=== PATIENT | female | born 1945 | race Caucasian/White ===

== ENCOUNTER 2017-06-01 08:23 | Inpatient (IN) ==
[2017-06-01] MEDS ORDERED: Ondansetron 4 MG/2 ML VIAL IVP ONE ×2 (08:30→14:12)
[2017-06-01] MEDS ORDERED: 0.9 % Sodium Chloride 1,000 ML IVC ONE ×2 (08:30→09:16)
[2017-06-01] MEDS ORDERED: *HR* Morphine 2 MG/ML SYRINGE IVP ONE (08:30)
--- NOTE | 2017-06-01 09:02 | Emergency Department Note ---
Disposition Clinical Impression: Rhabdomyolysis Qualifiers: Rhabdomyolysis type: non-traumatic Qualified Code(s): M62.82 - Rhabdomyolysis UTI (urinary tract infection) Qualifiers: Urinary tract infection type: site unspecified Hematuria presence: without hematuria Qualified Code(s): N39.0 - Urinary tract infection, site not specified Open trimalleolar fracture of left ankle Qualifiers: Encounter type: initial encounter Open fracture type: open type I or II Qualified Code(s): S82.852B - Displaced trimalleolar fracture of left lower leg , initial encounter for open fracture type I or II Disposition: Admitted As Inpatient Condition: Undetermined Forms: ED Satisfaction Letter Fall HPI - General Chief Complaint: ED Extremity Problem,Nontraumatic Stated Complaint: L ankle pain Time Seen by Provider: 06/01/17 08:25 Source: patient Mode of arrival: private vehicle Limitations: no limitations Nursing Notes Reviewed: Yes Vital Signs Reviewed: Yes - History of Present Illness Pt Subjective Complaint: fall Onset (ago): day(s) (Tuesday, 05/30) Fall From: standing Fall Witnessed: no Place Fall Occurred: home Loss of Consciousness: none Prolonged Down Time?: yes, day(s) Symptoms Prior to Fall: none Context: tripped/slipped Location of injury - extremities: Left: ankle Severity: mild Severity scale (1-10): 2 Quality: dull Associated symptoms (after fall): Reports: unable to walk - Related Data Home Medications Medication Instructions Recorded Confirmed Amlodipine Besylate 10 mg PO DAILY 06/01/17 06/01/17 Calcium Carbonate [Calcium] 600 mg PO DAILY 06/01/17 06/01/17 Cholecalciferol (D-3) [Vitamin D] 2,000 unit PO DAILY 06/01/17 06/01/17 Hydrochlorothiazide [Microzide] 12.5 mg PO DAILY 06/01/17 06/01/17 PHENobarbital [Phenobarbital] 194.4 mg PO DAILY 06/01/17 06/01/17 Phenytoin ER [Dilantin ER] 100 mg PO TID 06/01/17 06/01/17 Allergies Allergy/AdvReac Type Severity Reaction Status Date / Time No Known Allergies Allergy Verified 06/01/17 09:08 All systems ED: reviewed and negative except as stated. Review of Systems: As Per HPI Constitutional: Denies: fever, chills, weakness Eyes: Denies: vision change ENT ED: Denies: throat pain, congestion, dysphagia Cardiovascular: Denies: chest pain, palpitations, dyspnea on exertion, orthopnea Respiratory: Denies: cough, dyspnea, wheezes Gastrointestinal: Denies: abdominal pain, nausea, vomiting, diarrhea Genitourinary: Denies: urgency, dysuria, frequency, hematuria Musculoskeletal: Reports: as per HPI, joint swelling, arthralgia. Denies: back pain, neck pain Integumentary: Reports: as per HPI, abrasion Neurological: Denies: headache, weakness, numbness, paresthesias, confusion, vertigo Hematological/Lymphatic: Denies: easy bleeding, easy bruising Fall PMH - Past Medical History Medical history: Reports: hypertension, seizures Psychiatric history: Reports: no psych history - Social History Smoking Status: Never smoker Alcohol use: Reports: none Drug use: Reports: none Physical Exam - General Limitations: no limitations General appearance: alert, in no apparent distress - Head Head exam: atraumatic, normocephalic, normal inspection - Eye Eye exam: Present: normal appearance, PERRL, EOMI. Absent: scleral icterus, conjunctival injection, nystagmus, periorbital swelling - ENT ENT exam: mucous membranes dry - Neck Neck exam: Present: normal inspection, full ROM, trachea midline. Absent: tenderness - Chest Chest inspection: Present: normal inspection, symmetric chest wall rise - Respiratory Respiratory exam: Present: normal lung sounds bilaterally. Absent: respiratory distress, wheezes, stridor - Cardiovascular Cardiovascular exam: Present: regular rate, normal rhythm, normal heart sounds - Abdominal Exam Abdominal exam: Present: soft, Non-Tender. Absent: distention, guarding, rebound, rigidity, mass, pulsatile mass - Extremities Exam Extremities exam: Present: tenderness, normal capillary refill, joint swelling. Absent: calf tenderness - Expanded Upper Extremity Exam Shoulder exam: Present: normal inspection, full ROM Arm exam: Present: normal inspection. Absent: tenderness Elbow exam: Present: normal inspection, full ROM. Absent: tenderness Forearm/Wrist exam: Present: tenderness (Mild right proximal forearm), swelling (Around the contusion on the right proximal forearm, dorsal aspect), ecchymosis (Mild right proximal forearm, dorsal aspect). Absent: deformity, crepitus, erythema Hand exam: Present: normal inspection, full ROM. Absent: tenderness, swelling Neuromotor exam: Normal: wrist extension, thumb opposition, thumb IP flexion, thumb adduction Neurosensory exam: Normal: radial nerve, ulnar nerve, median nerve Hand tendon exam: Normal: flexor digitorum profundus (location), flexor digitorum superficialis (location), extensor tendon (location) Vascular exam: Normal: capillary refill, radial pulse, ulnar pulse - Expanded Lower Extremity Exam Hip/Pelvis exam: Present: full ROM. Absent: tenderness Upper leg exam: Absent: tenderness Knee exam: Present: normal inspection, full ROM, knee extension intact. Absent : tenderness Lower leg exam: Present: tenderness (mild, anterior), swelling (moderate), ecchymosis (mild, anerior), Achilles tendon intact. Absent: deformity, crepitus , erythema Ankle exam: Present: tenderness, swelling, abrasion (medial malleolus), ecchymosis, deformity, crepitus, tenderness over talofibular lig. Absent: full ROM, erythema 1 - tender, abrasion, edema 2 - tender, edematous 3 - tender, edematous Foot/toe exam: Present: tenderness, swelling, ecchymosis, tenderness at base of 5th metatarsal. Absent: crepitus, erythema, calcaneal tenderness Neurovascular/Tendon exam: Present: normal capillary refill, normal fine/light touch. Absent: pulse deficit, motor deficit, sensory deficit, tendon deficit, extremity cold to touch, pallor, foot drop Gait: not tested/not observed - Back Exam Back exam: Absent: tenderness - Neurological Exam Neurological exam: Present: alert, oriented X3, CN II-XII intact - Psychiatric Psychiatric exam: Present: normal affect, normal mood (suprisingly cheerful) - Skin Skin exam: Present: warm, dry, intact, normal color Course Course Narrative: Patient was brought in by squad for evaluation of left ankle deformity. Patient states that she tripped and fell on Tuesday and was unable to get up. She ultimately was able to crawl to a phone today and call for assistance. She complains of mild discomfort in the left ankle where she has an obvious deformity along with moderate swelling and ecchymosis of the left leg. She denies hitting her head, denies head, neck or back injury or pain now or at the time of the fall. She denies paresthesias in the extremities. She believes that she may have had a seizure when she was lying on the floor yesterday. She does have a known seizure disorder. She states that she was able to reach her purse and did take her seizure medication. She denies any other injuries from the seizure and describes it as a "petit mall seizure", however, it was not witnessed. She lives alone and EMS describes her house as being in deplorable condition. Social work has been consulted. Patient declines pain medication at this time, but states that if her ankle needs to be reduced. She would like to have something then. I went ahead and ordered pain medication for the obviously fractured long bone. Fluids, labs, and ecg also ordered. Patient states that she has not had a seizure in several months and was concerned about the recent increased in frequency of seizures, so I did order a CT of her head. Given the unwitnessed trauma and her history of osteoporosis, I also ordered a scan of her neck. Her ankle could certainly be considered a distracting injury , although she does not complain of much pain. She does have moderate edema in the left lower extremity, however, she has 2+ DP and PT pulses and the foot is not cold, thus, my suspicion for compartment syndrome is very low. The case has been discussed with Dr. Muller. He has had [id number] time with the patient and agrees with the assessment and plan. Ortho has been consulted as well - Reevaluation(s) Reevaluation #1: Patient does appear to be in rhabdomyolysis. Additional fluids have been ordered. IV has infiltrated. Nurse was made aware. Splint was causing the patient discomfort. It was loosened and the leg was elevated. She declines additional pain medication at this time. Time: 10:26 Reevaluation #2: New IV started, fluid rehydration resumed. [facility] Time: 11:29 - Consultations Consultation #1: Case was discussed with Dr. Peters, who requests that we contact Dr. Layne, podiatris. Dr. Layne is in the OR, so I spoke to him through his nurse. I let them know that the patient has a comminuted open trimalleolar fracture with significant edema, ecchymosis, normal DPPT pulses and normal cap refill. The patient will need to be admitted to medicine given her prolonged downtime and comorbidities. Dr. Layne agrees with the plan to give Ancef. An order for the consult has been placed in [employer]. Time: : Consultation #2: Tony Alfredo came to the ER to see the patient. He removed the splint, examined the patient's lower extremity and reviewed the pending procedure with her. Signed consent form was placed on the patient's chart. Time: 11:10 Vital Signs Temperature 98.3 F 06/01/17 08:27 Pulse Rate 91 06/01/17 08:27 Respiratory Rate 18 06/01/17 08:27 Blood Pressure 141/68 06/01/17 08:27 O2 Sat by Pulse Oximetry 98 06/01/17 08:27 Temperature 98.3 F 06/01/17 08:27 Pulse Rate 91 06/01/17 08:27 Respiratory Rate 18 06/01/17 08:27 Blood Pressure 141/68 06/01/17 08:27 O2 Sat by Pulse Oximetry 98 06/01/17 08:27 Oxygen Delivery Oxygen Delivery Room Air Fall - Medical Records Medical records reviewed: Yes I reviewed the patient's medical records. - Lab Data Lab results reviewed: Yes I reviewed the patient's lab results. Lab results narrative: Laboratory Last Values WBC 14.8 K/mcL (4.3-11.1) H 06/01/17 09:34 RBC 3.78 M/mcL (3.82-4.97) L 06/01/17 09:34 Hgb 12.2 g/dL (11.5-15.4) 06/01/17 09:34 Hct 36.2 % (35.3-44.9) 06/01/17 09:34 MCV 95.8 fL (83.0-100.0) 06/01/17 09:34 MCH 32.3 pg (28.0-33.3) 06/01/17 09:34 MCHC 33.7 g/dL (31.6-35.5) 06/01/17 09:34 RDW 13.2 % (11.5-14.5) 06/01/17 09:34 Plt Count 224 K/mcL (140-400) 06/01/17 09:34 MPV 10.6 fL (9.4-12.4) 06/01/17 09:34 Immature Gran % 0.5 % (0-4) 06/01/17 09:34 Seg Neutrophils % 79.2 % 06/01/17 09:34 Lymphocytes % 10.7 % 06/01/17 09:34 Monocytes % 9.3 % 06/01/17 09:34 Eosinophils % 0.1 % 06/01/17 09:34 Basophils % 0.2 % 06/01/17 09:34 Neutrophils # 11.8 K/mcL (1.6-8.9) H 06/01/17 09:34 Lymphocytes # 1.6 K/mcL (0.6-4.6) 06/01/17 09:34 Monocytes # 1.4 K/mcL (0.0-1.3) H 06/01/17 09:34 Eosinophils # 0.0 K/mcL (0.0-0.6) 06/01/17 09:34 Basophils # 0.0 K/mcL (0.0-0.2) 06/01/17 09:34 Immature Plt Fraction 6.5 % (1.1-6.1) H 06/01/17 09:34 PT 13.2 Seconds (9.4-12.1) H 06/01/17 09:34 INR 1.2 06/01/17 09:34 APTT 25.1 Seconds (26.0-36.0) L 06/01/17 09:34 Sodium 142 mEq/L (136-145) 06/01/17 09:34 Potassium 3.8 mEq/L (3.5-4.5) 06/01/17 09:34 Chloride 102 mEq/L (98-109) 06/01/17 09:34 Carbon Dioxide 23 mEq/L (19-29) 06/01/17 09:34 BUN 33 mg/dL (7-20) H 06/01/17 09:34 Creatinine 0.82 mg/dL (0.57-1.11) 06/01/17 09:34 Est GFR ( Amer) > 60 (> 60) 06/01/17 09:34 Est GFR (Non-Af Amer) > 60 (> 60) 06/01/17 09:34 BUN/Creatinine Ratio 40 (6-26) H 06/01/17 09:34 Glucose 105 mg/dL (70-99) H 06/01/17 09:34 Calculated Osmolality 302 (280-300) H 06/01/17 09:34 Lactic Acid 1.1 mmol/L (0.5-2.2) 06/01/17 10:46 Calcium 9.6 mg/dL (8.6-10.8) 06/01/17 09:34 Total Bilirubin 0.7 mg/dL (0.2-1.2) 06/01/17 09:34 Direct Bilirubin 0.4 mg/dL (0.0-0.5) 06/01/17 09:34 Indirect Bilirubin 0.3 mg/dL (0.0-1.2) 06/01/17 09:34 AST 159 Units/L (5-34) H 06/01/17 09:34 ALT 61 Units/L (0-55) H 06/01/17 09:34 Alkaline Phosphatase 97 Units/L (38-126) 06/01/17 09:34 Creatine Kinase 7228 Units/L (29-168) H 06/01/17 09:34 Serum Total Protein 7.3 g/dL (6.0-8.3) 06/01/17 09:34 Albumin 3.9 g/dL (3.5-5.0) 06/01/17 09:34 Globulin 3.4 g/dL (2.4-3.5) 06/01/17 09:34 Albumin/Globulin Ratio 1.1 (1.1-2.2) 06/01/17 09:34 Urine Color Dark Yellow (Yellow) 06/01/17 09:51 Urine Clarity Cloudy (Clear) A 06/01/17 09:51 Urine pH 5.5 pH Units (5.0-8.0) 06/01/17 09:51 Ur Specific [place] 1.030 (1.010-1.025) H 06/01/17 09:51 Urine Protein 30 mg/dL (Neg-Trace) H 06/01/17 09:51 Urine Glucose (UA) Normal mg/dL (Normal) 06/01/17 09:51 Urine Ketones 15 mg/dL (Negative) H 06/01/17 09:51 Urine Blood Moderate (Negative) H 06/01/17 09:51 Urine Nitrite Positive (Negative) A 06/01/17 09:51 Urine Bilirubin Negative (Negative) 06/01/17 09:51 Urine Urobilinogen Normal mg/dL (Normal) 06/01/17 09:51 Ur Leukocyte Esterase Negative (Negative) 06/01/17 09:51 Urine Microscopic RBC 0-3 per hpf (0-3) 06/01/17 09:51 Urine Microscopic WBC 30-50 per hpf (0-3) H 06/01/17 09:51 Ur Squamous Epith Cells Many per lpf (None-Few) H 06/01/17 09:51 Urine Bacteria Many per hpf (None-Few) H 06/01/17 09:51 Hyaline Casts Few per lpf (None-Few) 06/01/17 09:51 Ur Culture Indicated? YES (NO) A 06/01/17 09:51 Valproic Acid < 2.00 mcg/mL (50-100) L 06/01/17 09:34 Phenobarbital 29 mcg/mL (15-40) 06/01/17 09:34 - Radiology Data Radiology results reviewed: Yes I reviewed the patient's radiology results. Ankle X-Ray 06/01/17 08:30 IMPRESSION: Acute, traumatic fracture of the medial malleolus with rotation and medial and inferior displacement of the fracture fragment, below the tibial plafond. Acute, traumatic, oblique fracture of the lateral malleolus with 2 cm overriding of the fracture fragments. There is 2 cm lateral displacement of the talus with respect to the tibial plafond. D/ / 06/01/2017 09:23:37 Jacinda Galloway MD / nik Interpreting Provider: Jacinda Galloway MD Cervical Spine CT 06/01/17 08:30 IMPRESSION: No acute abnormality of the cervical spine. D/ / 06/01/2017 09:53:08 Malik Calderon MD / nik Interpreting Provider: Malik Calderon MD Head CT 06/01/17 08:30 IMPRESSION: No acute intracranial abnormality. D/ / 06/01/2017 09:49:26 Jacinda Galloway MD / Fernanda Bourgeois Interpreting Provider: Jacinda Galloway MD Foot X-Ray 06/01/17 09:18 IMPRESSION: 1. No acute traumatic injury involving the left foot. D/ / 06/01/2017 10:31:40 Don Julio MD / david Interpreting Provider: Don Julio MD
[2017-06-01] MEDS ORDERED: Tdap (Boostrix) Vaccine 0.5 ML SYRINGE IM ONE (09:06)
[2017-06-01] MEDS ORDERED: ceFAZolin 1,000 MG in D5% in Water (Mini-Bag+) 100 ML IVPB ONE (09:07)
--- NOTE | 2017-06-01 09:31 | Emergency Department Note ---
START Narrative - START START: I examined this patient and my medical decision-making was reviewed with the PA. I agree with the documented findings, disposition and treatment plan as described except to the extent set forth below. 72-year-old female presents emergency room after she felt over 2 days ago at her house. She suffered a left ankle trimalleolar fracture. She was unable to get any help for the past couple days. She was then able to crawl to get to the phone to call ambulance. It appears as though she had open fracture of this left lower extremity. We consulted emergently with podiatry. They will see the patient after his other current operating procedure. Patient will need to be taken to the operating room today. We have ordered IV fluids, Ancef, pain medication. I attempted to do a quick reduction of the left ankle fracture by pulling caudad on the heel. This did relocate to some degree. This helped relieve some of the tension off the skin. We are treating this as an open fracture. Patient will need to be admitted to the hospitalist service. We have ordered a bunch of labs to evaluate for possible rhabdomyolysis as well.
[2017-06-01] MEDS ORDERED: ceFAZolin 1,000 MG in Water for inj. (sterile) 10 ML IVPB ONE (09:45)
[2017-06-01 09:46] LABS: Basophils % 0.2 %; Eosinophils % 0.1 %; Hematocrit 36.2 % (35.3-44.9); Hemoglobin 12.2 g/dL (11.5-15.4); Immature Granulocytes % 0.5 % (0-4); Immature Platelets 6.5 % (1.1-6.1); Lymphocytes # 1.6 K/mcL (0.6-4.6); Lymphocytes % 10.7 %; Mean Corpuscular HGB Conc 33.7 g/dL (31.6-35.5); Mean Corpuscular Hemoglobin 32.3 pg (28.0-33.3); Mean Corpuscular Volume 95.8 fL (83.0-100.0); Mean Platelet Volume 10.6 fL (9.4-12.4); Monocytes # 1.4 K/mcL (0.0-1.3); Monocytes % 9.3 %; Neutrophils # 11.8 K/mcL (1.6-8.9); Platelet Count 224 K/mcL (140-400); Red Blood Count 3.78 M/mcL (3.82-4.97); Red Cell Distribution Width 13.2 % (11.5-14.5); Segmented Neutrophils % 79.2 %
[2017-06-01 09:56] LABS: INR 1.2; Prothrombin Time 13.2 Seconds (9.4-12.1)
[2017-06-01 09:58] LABS: Activated Partial Thrombo Time 25.1 Seconds (26.0-36.0)
[2017-06-01 10:03] LABS: Bilirubin,Urine Negative (Negative); Blood,Urine Moderate (Negative); Clarity,Urine Cloudy (Clear); Color,Urine Dark Yellow (Yellow); Glucose,Urine (UA) Normal (Normal); Ketones,Urine 15 mg/dL (Negative); Leukocyte Esterase,Urine Negative (Negative); Nitrite,Urine Positive (Negative); PH,Urine 5.5 pH Units (5.0-8.0); Protein,Urine 30 mg/dL (Neg-Trace); Urobilinogen,Urine Normal (Normal)
[2017-06-01 10:06] LABS: Bacteria,Urine Many per hpf (None-Few); RBC,Urine 0-3 per hpf (0-3); Squamous Epithelial Cell,Urine Many per lpf (None-Few); WBC,Urine 30-50 per hpf (0-3)
[2017-06-01 10:10] LABS: Alanine Aminotransferase 61 Units/L (0-55); Albumin 3.9 g/dL (3.5-5.0); Albumin/Globulin Ratio 1.1 (1.1-2.2); Alkaline Phosphatase 97 Units/L (38-126); Aspartate Amino Transferase 159 Units/L (5-34); BUN/Creatinine Ratio 40 (6-26); Bilirubin,Direct 0.4 mg/dL (0.0-0.5); Bilirubin,Indirect 0.3 mg/dL (0.0-1.2); Bilirubin,Total 0.7 mg/dL (0.2-1.2); Blood Urea Nitrogen 33 mg/dL (7-20); Calcium 9.6 mg/dL (8.6-10.8); Carbon Dioxide 23 mEq/L (19-29); Chloride 102 mEq/L (98-109); Globulin 3.4 g/dL (2.4-3.5); Glucose 105 mg/dL (70-99); Osmolality,Calculated 302 (280-300); Potassium 3.8 mEq/L (3.5-4.5); Sodium 142 mEq/L (136-145); Total Protein 7.3 g/dL (6.0-8.3); eGFR For African Americans > 60 (> 60); eGFR For Non-African Americans > 60 (> 60)
[2017-06-01 10:12] LABS: Creatine Kinase 7228 Units/L (29-168)
[2017-06-01 10:16] LABS: Hyaline Casts,Urine Few per lpf (None-Few)
[2017-06-01 10:33] LABS: Valproate < 2.00 mcg/mL (50-100)
--- NOTE | 2017-06-01 11:59 | Podiatry Consult Note ---
Date of Encounter: 06/01/17 Time of Encounter: 10:30 Assessment and Plan (1) Trimalleolar fracture of ankle, closed Current visit: Yes Status: Acute I had a thorough review with the patient regarding her injury/condition, my findings, and recommendations for treatment. We discussed her x-ray and alignment of the left ankle and the fractures present. Nature of procedure left ankle ORIF with screws and plates, possible use of external fixation discussed with patient at length. Risks versus benefits, potential complications and consequences of the procedure discussed with the patient. 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 Discussed typical course of recovery and she will be nonweightbearing for approximately 8 weeks or longer following the procedure. As the ankle was unable to be reduced and skin is tenting the skin medially and there is concern for skin necrosis and creating an open fracture she has been added on for left ankle ORIF and admitted to the hospitalist who will futher manage comorbid conditions. Qualifiers: Encounter type: initial encounter Laterality: left Qualified Code(s): S82.852A - Displaced trimalleolar fracture of left lower leg, initial encounter for closed fracture History of Present Illness HPI: Ms. Jennifer Thao is a 72 year old female who says on Tuesday she tripped over a power cord at her home sustaining a left ankle injury and has been unable to put weight on it since. She has tried to put weight on it but with severe pain. Today she came to the emergency room via ambulance and was found to have a trimalleolar ankle fracture which was unable to be reduced in the emergency room and the medial skin was being tented and concern for creating an open ankle fracture. Podiatry was consulted this morning for evaluation of the left ankle fracture. Does report swelling around the ankle and tingling. Patient says she last had anything to eat or drink Tuesday evening. Past Med Surg Social Fam HX - Past Medical History Medical history: hypertension, seizures Psychiatric history: no psych history - Social History Smoking Status: Never smoker Smokeless Tobacco Status: No Alcohol use: none Drug use: none Medications and Allergies Amlodipine Besylate 10 mg PO DAILY 06/01/17 [History] Calcium Carbonate [Calcium] 600 mg PO DAILY 06/01/17 [History] Cholecalciferol (D-3) [Vitamin D] 2,000 unit PO DAILY 06/01/17 [History] Hydrochlorothiazide [Microzide] 12.5 mg PO DAILY 06/01/17 [History] PHENobarbital [Phenobarbital] 194.4 mg PO DAILY 06/01/17 [History] Phenytoin ER [Dilantin ER] 100 mg PO TID 06/01/17 [History] 3 Allergy/AdvReac Type Severity Reaction Status Date / Time No Known Allergies Allergy Verified 06/01/17 09:08 All Systems Reviewed: A 10-system review of systems was performed and is negative for pertinent findings except as documented above in the HPI. - Constitutional Constitutional: no fever(s) - Cardiovascular Cardiovascular: no chest pain, no dyspnea - Respiratory Respiratory: no cough, no dyspnea, no wheezing - Musculoskeletal Musculoskeletal: abnormal gait, joint swelling, numbness, tingling, other (left ankle pain) Physical Exam - Constitutional Vitals: Temp Pulse Resp BP Pulse Ox 98.3 F 93 16 141/70 95 06/01/17 08:27 06/01/17 11:33 06/01/17 11:33 06/01/17 11:33 06/01/17 11:33 Exam: Well-developed and nourished female in no acute distress Capillary refill time less than 3 seconds 5 digits left foot. Left foot warm to touch. DP and PT pulse palpable. There is mild edema of the left ankle. Ecchymosis medial and lateral ankle with medial skin tenting. There is no necrosis or exposed bone. There is a small fracture blister medially adjacent to the tented skin. Pain with palpation circumferentially around the ankle joint. Could not assess further secondary to pain. sensation intact to light touch. Results - Labs Result Diagrams: 06/01/17 09:34 06/01/17 09:34 Labs: Abnormal lab results WBC 14.8 K/mcL (4.3-11.1) H 06/01/17 09:34 RBC 3.78 M/mcL (3.82-4.97) L 06/01/17 09:34 Neutrophils # 11.8 K/mcL (1.6-8.9) H 06/01/17 09:34 Monocytes # 1.4 K/mcL (0.0-1.3) H 06/01/17 09:34 Immature Plt Fraction 6.5 % (1.1-6.1) H 06/01/17 09:34 PT 13.2 Seconds (9.4-12.1) H 06/01/17 09:34 APTT 25.1 Seconds (26.0-36.0) L 06/01/17 09:34 BUN 33 mg/dL (7-20) H 06/01/17 09:34 BUN/Creatinine Ratio 40 (6-26) H 06/01/17 09:34 Glucose 105 mg/dL (70-99) H 06/01/17 09:34 Calculated Osmolality 302 (280-300) H 06/01/17 09:34 AST 159 Units/L (5-34) H 06/01/17 09:34 ALT 61 Units/L (0-55) H 06/01/17 09:34 Creatine Kinase 7228 Units/L (29-168) H 06/01/17 09:34 Urine Clarity Cloudy (Clear) A 06/01/17 09:51 Ur Specific [place] 1.030 (1.010-1.025) H 06/01/17 09:51 Urine Protein 30 mg/dL (Neg-Trace) H 06/01/17 09:51 Urine Ketones 15 mg/dL (Negative) H 06/01/17 09:51 Urine Blood Moderate (Negative) H 06/01/17 09:51 Urine Nitrite Positive (Negative) A 06/01/17 09:51 Urine Microscopic WBC 30-50 per hpf (0-3) H 06/01/17 09:51 Ur Squamous Epith Cells Many per lpf (None-Few) H 06/01/17 09:51 Urine Bacteria Many per hpf (None-Few) H 06/01/17 09:51 Ur Culture Indicated? YES (NO) A 06/01/17 09:51 Valproic Acid < 2.00 mcg/mL (50-100) L 06/01/17 09:34 All other labs normal. - Diagnostic results Ankle/Foot x-ray: image reviewed, other (displaced trimalleolar ankle fracture) Consult Discharge Plan - Plan Referrals: Jennyfer Vallejo MD [Primary Care Provider] -
--- NOTE | 2017-06-01 12:58 | Anesthesia Evaluation PreOp ---
Date of Encounter: 06/01/17 Time of Encounter: 12:56 - Past History Planned Operation: ORIF right ankle Cardiac History: Denies any Significant Hx Pulmonary History: Denies Any Significant HX POLYSOMNOGRAPH TECH History: Seizures (recent petit mal seizures) Other Medical History: Denies Any Significant HX Anesthesia History: No Prior Anesthetic Complications, Past Anesthesia ( cataracts) Alcohol Use: none Drug use: none Medications and Allergies Amlodipine Besylate 10 mg PO DAILY 06/01/17 [History] Calcium Carbonate [Calcium] 600 mg PO DAILY 06/01/17 [History] Cholecalciferol (D-3) [Vitamin D] 2,000 unit PO DAILY 06/01/17 [History] Hydrochlorothiazide [Microzide] 12.5 mg PO DAILY 06/01/17 [History] PHENobarbital [Phenobarbital] 194.4 mg PO DAILY 06/01/17 [History] Phenytoin ER [Dilantin ER] 100 mg PO TID 06/01/17 [History] 3 Allergy/AdvReac Type Severity Reaction Status Date / Time No Known Allergies Allergy Verified 06/01/17 09:08 - Meds/Allergy Pre-op Review Medications Reviewed: Yes Allergies Reviewed: Yes Beta Blockers on Current Med List: No Anesthesia Results - Labs 06/01/17 09:34 06/01/17 09:34 Anesthesia Exam Selected Entries 06/01/17 08:27 06/01/17 11:33 06/01/17 12:27 Temperature 98.3 F Pulse Rate 93 Respiratory Rate 16 Blood Pressure 114/63 O2 Sat by Pulse Oximetry 95 Weight: 59kg NPO (# of Hours): >72 - HEENT Pupil (Motor): EOMI Mallampati: II Teeth: Poor dentition Oral Opening: Greater than 3 - POLYSOMNOGRAPH TECH LOC: Oriented POLYSOMNOGRAPH TECH Motor: Normal RUE, Normal LUE, Normal RLE, Normal LLE, Normal Face POLYSOMNOGRAPH TECH Sensory: Normal: RUE, LUE, RLE, LLE, Face - Cardiac Rhythm: Regular Murmur: None - Pulmonary Breath Sounds: bilateral Clear Respiratory Effort: Symmetrical Anesthesia Assess/Plan ASA Score: 2 Modified [place] Scale for Level of Consciousness: Cooperative, oriented, and tranquil Anesthetic Plan: General Monitoring Plan: Standard Monitors Recovery Plan: PACU (Discussed GA and block, agrees to proceed)
[2017-06-01] MEDS ORDERED: ROPIVACAINE HCL/PF 0.5% 30 ML VIAL ONE (13:06)
[2017-06-01] MEDS ORDERED: Lidocaine/EPI 1:100k 1% 20 ML VIAL ONE (13:07)
[2017-06-01] MEDS ORDERED: Lidocaine -MPF 2% 2 ML VIAL ONE (13:12)
[2017-06-01] MEDS ORDERED: *HR* Midazolam HCl 2 MG/2 ML VIAL ONE (13:12)
[2017-06-01] MEDS ORDERED: *HR* Propofol 200 MG/20 ML VIAL IVP ONE (13:12)
[2017-06-01] MEDS ORDERED: *HR* FentaNYL (PF) 100 MCG/2 ML VIAL ONE (13:12)
[2017-06-01] MEDS: Ringers Solution, Lactated 1,000 ML IVC SCH ×2 (13:15→15:08)
--- NOTE | 2017-06-01 13:54 | Anesthesia Procedures ---
Date of Encounter: 06/01/17 Time of Encounter: 13:15 Procedures: Anesthesia - Nerve Block Procedure Date: 06/01/17 Time: 13:15 Allergies/Adv Reactions: nka Pre-op Diagnosis: left ankle fx Surgical Procedure: left ankle orif Checklist: Correct Patient Identifier, Correct procedure, History checked Correct side: Left Blood Thinner: No Monitor Applied: EKG, BP, Pulse Oximetry Supplemental Oxygen via Nasal Cannula (L/min): 2 Sedation: Versed (mg): 2 Indication: Post Op Analgesia Pre-op Neuro Deficits: No Block Type: Popliteal, Other (Adductor Canal) Catheter placed: No Sterile Technique: Yes Ultrasound used: Yes Anatomy identified: Yes Visual spread of Local: Yes Neuro Stimulation: No Blood on Needle Aspiration: No Smooth Injection of Local: Yes Pain with Injection of Local: No Prep: Chlorhexadine Needle: 22 x 50 mm Stimuplex (AC), 21 x 100 mm Stimuplex (popliteal) Local: Ropivacaine (30mL), Other (decadron 10mg x 2 (divided between each block) , 0.5% bupivicaine 20mL) Volume (cc): 50 Number of Attempts: 1 Complications: None/effective block Vitals: Vital Signs/O2 Sat/Glucose, Most Recent Temp Pulse Resp BP Pulse Ox 98.3 F 90 15 115/64 97 06/01/17 08:27 06/01/17 13:03 06/01/17 13:03 06/01/17 13:03 06/01/17 13:03
[2017-06-01] MEDS ORDERED: CeFAZolin Premix DUPLEX 2,000 MG/50 ML BAG IVPB ONE (13:57)
[2017-06-01] MEDS ORDERED: *HR* HYDROmorphone (PF) 1 MG/ML SYRINGE IVP PRN (14:12)
[2017-06-01] MEDS ORDERED: *HR* Labetalol 20 MG/4 ML SYRINGE IVP PRN (14:12)
[2017-06-01] MEDS ORDERED: *HR* Morphine 2 MG/ML SYRINGE IVP PRN ×2 (14:12→17:14)
[2017-06-01] MEDS ORDERED: Ondansetron 4 MG/2 ML VIAL ONE (14:57)
[2017-06-01] MEDS ORDERED: Dexamethasone 4 MG/ML VIAL ONE (14:57)
[2017-06-01] MEDS ORDERED: *HR* OxyCODONE/APAP 5/325 TABLET PO PRN ×2 (15:30→16:07)
--- NOTE | 2017-06-01 15:39 | Operative Note ---
Date of procedure: 06/01/17 Pre-op diagnosis: left trimalleolar ankle fracture/dislocation Post-op diagnosis: same Procedure: 1. ORIF left trimalleolar ankle fracture 2. ORIF of syndesmosis left ankle Implants: bran locking plate with 3.5mm locking and non-locking screws, 4.0mm partially threaded cannulated screws with washers Complications: none Anesthesia: GETA, other (popliteal block by anesthesia) Local Anesthetics: Other Surgeon: Prem Alfredo Estimated blood loss (cc): 15 Specimen: none Condition: stable Disposition: PACU Procedure in Detail: Indications: 72-year-old female who had sustained a left trimalleolar ankle fracture on Tuesday at home and unable to walk on it still today she called an ambulance which brought her to [facility] where an x-ray was done and the left trimalleolar ankle fracture was found on xray. The fracture was malaligned and the medial soft tissues were tented with a small fracture blister, the fracture was unable to be reduced in the ER and there was concern for development of an open fracture with medial soft tissue tenting and development of a fracture blister, the patient was admitted and I was consulted to see the patient. Nature of the procedure, ORIF left ankle fracture with use of hardware discussed with the patient at length. Risks versus benefits, potential complications and consequences of the procedure were discussed with the patient. She understood that she would have arthritis due to the nature of her injury and may always have some pain and could need future surgery on the ankle. All questions answered and informed consent was signed. A popliteal block was administered by anesthesia. Patient taken from the preoperative holding area and operating room placed on the operating room table in the supine position. A thig tourniquet was applied and inflated to 300mm Hg. The left lower extremity was scrubbed prepped and draped in the usual sterile fashion. The following procedures then began. Left ORIF trimalleolar ankle fracture and syndesmotic repair. Attention was directed to the lateral aspect of the patient's left ankle were #15 blade was used to make a skin incision approximately 7 cm in length. Skin incision was deepened through blunt dissection all traversing veins were divided and ligated using the Bovie or Vicryl ties as deemed appropriate. Care was taken to avoid neurovascular tendon structures. The periosteal layer was incised and freed from the fibula exposing the fracture zone of the lateral malleolus which was obliquely oriented and the most lateral aspect of the fracture contained comminuted fragments. Hematoma was evacuated from the fracture zone. The ankle was held in a reduced position with the talus under the tibia and well aligned and the ankle mortise. C-arm was utilized to confirm reduction of the talus and the ankle mortise and that the fibula was out to length. K wires were used to temporarily pin the fracture zone and it should be noted that there was some bone loss at the lateral aspect of the fracture where the comminuted fragments of bone were located. Using standard technique a Bran locking plate was applied using 3.5 mm locking and nonlocking screws to the lateral aspect of the fibula bridging the fracture zone. Temporary K wire fixation was removed and stability of the fracture zone was assessed and the fracture zone had good apposition and the ankle was noted to be in good position and alignment on the C-arm. The lateral comminuted zone which had bone loss was filled with a small amount of cancellous allograft bone chips. Attention was then directed medially where a #15 blade was used to make a skin incision approximately 4 cm in length over the medial malleolus. It should be noted that the skin incision was sufficiently away from the fracture blisters zone and area where the skin was being tented preoperatively. Skin incision was deepened through blunt dissection care was taken to avoid neurovascular tendinous structures. A #15 blade was used to incise the Periosteum over the medial malleolus exposing the fracture zone. Hematoma was evacuated from the fracture zone and periosteum removed from the fracture zone. The medial malleolus was then temporarily pinned in a reduced position and using standard technique 24.0 mm partially threaded cannulated [place] screws with washers were thrown across the fracture zone. C-arm was utilized to confirm position and alignment of the screws traversing the fracture zone. Reduction of the fracture zone was noted. Attention was then directed laterally where the cotton test was performed and there was instability felt to be present at the syndesmosis and the decision was made to perform an ORIF of the syndesmosis utilizing [place] 3.5 mm nonlocking screw thrown through the locking plate while the syndesmosis was held in a reduced position. C-arm was utilized to confirm position and alignment of the fracture zones and the syndesmosis. There was no increased and medial clear space there was good tib-fib overlap and the talus was located in the ankle mortise and the fibula was out to length. Surgical sites were flushed with copious amounts of normal sterile saline. Periosteal layers were closed with 2-0 Vicryl subcutaneous tissues were closed with 3-0 Vicryl and the skin was reapproximated with sanjuana medially and laterally. Postoperative bandaging included Xeroform, 4 x 4 gauze , Kerlix and an adequately padded posterior splint. Cryo Cuff applied. The patient tolerated the anesthesia and the procedure well and was escorted to the recovery room with vital signs stable and vascular status intact to the left foot noted by instant capillary refill time to all digits of the left foot. Physical therapy ordered. Elevation. Patient given strict verbal instructions for non-weightbearing to the left lower extremity patient was admitted prior to the surgery and she will return to the floor after her stay in the PACU.
--- NOTE | 2017-06-01 16:05 | Anesthesia Evaluation Post Op ---
Date of Encounter: 06/01/17 Time of Encounter: 16:04 - Vital Signs Vital Signs: Last Vital Signs Temp 97.8 F 06/01/17 15:53 Pulse 84 06/01/17 15:53 Resp 12 06/01/17 15:53 BP 135/70 06/01/17 15:53 Pulse Ox 97 06/01/17 15:53 - Lungs Lungs: Clear Ascult./Percussion - Airway Airway: Non-obstructed - Cardiovascular Regular Rate - Mental Status Mental Status: Alert & Oriented, Answers Appropriately - Pain Pain Scale: 2 - Nausea Vomiting Nausea Vomiting: Not Present - Hydration Hydration: NPO - Discharge PostOp Status: Transfer Patient to floor
[2017-06-01] MEDS ORDERED: Ondansetron 4 MG/2 ML VIAL IVP PRN (17:14)
[2017-06-01] MEDS ORDERED: Acetaminophen 325 MG TABLET PO PRN (17:14)
[2017-06-01] MEDS ORDERED: Naloxone 0.4 MG/ML INJ IVP PRN (17:14)
[2017-06-01] MEDS ORDERED: 0.9 % Sodium Chloride 1,000 ML IVC SCH ×2 (17:15→23:54)
[2017-06-01] MEDS ORDERED: *HR* Phenylephrine 10 MG/ML VIAL ONE (17:19)
--- NOTE | 2017-06-01 17:25 | Internal Med History&Physical ---
<Negin Vela - Last Filed: 06/01/17 22:46> Date of Encounter: 06/01/17 Time of Encounter: 17:25 Assessment and Plan (1) Trimalleolar fracture of ankle, closed Status: Acute Patient experienced a fall from standing sustaining a left trimalleolar fracture. Podiatry was consult and the patient was taken to surgery for ORIF.- Continue with podiatry's recommendations 2 we will continue with morphine and Percocet for pain 3 Zofran for nausea Qualifiers: Encounter type: initial encounter Laterality: left Qualified Code(s): S82.852A - Displaced trimalleolar fracture of left lower leg, initial encounter for closed fracture (2) Rhabdomyolysis Status: Acute 1 patient experienced a fall from standing sustaining a left trimalleolar fracture. She was unable to get up off the floor for approximately a day and half. Upon presentation her CPK was 7228. Creatinine is stable at this time We will continue with IV fluids overnight 2 recheck CPK and creatinine in a.m. Qualifiers: Rhabdomyolysis type: traumatic Encounter type: initial encounter Qualified Code(s): T79.6XXA - Traumatic ischemia of muscle, initial encounter (3) Seizure disorder Status: Acute Patient has history of seizure disorder she states her last grand mal seizure was approximately 2 years ago. She suspects that she may have had a petite mal seizure yesterday. We will continue with seizure precautions Continue with home epileptics (4) UTI (urinary tract infection) Status: Acute 1 . Rocephin pending urine culture sensitivity Qualifiers: Urinary tract infection type: site unspecified Hematuria presence: without hematuria Qualified Code(s): N39.0 - Urinary tract infection, site not specified (5) DVT prophylaxis Status: Acute Continue with foot pumps Internal Medicine - H&P: HPI Chief complaint: fall- L ankle fx Admitted From: Emergency Dept Plans for Post Hospital Care: Home History of present illness: Ms. Jennifer Thao is a 72 year old female past medical history of seizure disorders. According to patient on Tuesday she tripped over a power cord sustained a left ankle injury and was unable to get up. She ultimately was able to crawl to a phone today and call for assistance. She believes that she may have experienced a seizure while lying on the floor yesterday. She was able to reach her purse and take her seizure medication. Tuesday evening was the last day she had anything to eat or drink She was brought to the ER for evaluation by the EMS. Upon arrival she had a noted left ankle deformity. Lab work did reveal patient was in rhabdomyolysis as well as has a UTI. CT of head and C-spine and were negative for any intracranial abnormalities or fractures. Ankle x-ray did reveal closed trimalleolar fracture. Podiatry was consulted and the patient was taken to surgery from the ER. Surgery and postop was uneventful. Presently patient is alert and appropriate denies any pain or discomfort and is hemodynamically stable at this time. Left foot is splinted extremities pink and warm with brisk capillary refill. Past Med Surg Social Fam HX - Past Medical History Medical history: hypertension, seizures Psychiatric history: no psych history - Social History Smoking Status: Never smoker Smokeless Tobacco Status: No Alcohol use: rarely Drug use: none - Family History Sister Living Status: Hx Family Neurologic Disorders: Yes (stroke) Internal Medicine - H&P: Meds Amlodipine Besylate 10 mg PO DAILY 06/01/17 [History] Calcium Carbonate [Calcium] 600 mg PO DAILY 06/01/17 [History] Cholecalciferol (D-3) [Vitamin D] 2,000 unit PO DAILY 06/01/17 [History] Hydrochlorothiazide [Microzide] 12.5 mg PO DAILY 06/01/17 [History] PHENobarbital [Phenobarbital] 64.8 mg PO TID 06/01/17 [History] Phenytoin ER [Dilantin ER] 100 mg PO TID 06/01/17 [History] OxyCODONE/APAP 5/325 [Percocet 5/325 MG] 1 each PO Q8HR PRN #10 tablet 06/04/17 [Rx] 3 Allergy/AdvReac Type Severity Reaction Status Date / Time No Known Allergies Allergy Verified 06/01/17 09:08 All Systems PM: A 10-system review of systems was performed and is negative for pertinent findings except as documented above in the HPI. - Constitutional Constitutional: no chills, no fever(s), no night sweats - EENT Eyes: no change in vision, no discharge, no pain, no photophobia Nose, mouth and throat: no dysphagia, no nasal discharge, no neck pain, no sore throat - Cardiovascular Cardiovascular ROS IM: no chest pain, no diaphoresis, no dyspnea, no lightheadedness, no palpitations, no syncope - Respiratory Respiratory: no cough, no dyspnea, no wheezing, no excessive phlegm production - Gastrointestinal Gastrointestinal: no abdominal pain, no diarrhea, no hematemesis, no hematochezia, no melena, no nausea, no vomiting - Genitourinary Genitourinary: no change in urinary stream, no dysuria, no flank pain, no hematuria - Musculoskeletal Musculoskeletal ROS IM: deformity, joint swelling, no numbness, no tingling - Neurological Neurological ROS: no confusion, no convulsions, no focal weakness, no numbness, no tingling, no tremor(s) - Constitutional Vitals: Temp Pulse Resp BP Pulse Ox 97.9 F 97 16 134/64 97 06/01/17 17:20 06/01/17 17:20 06/01/17 17:20 06/01/17 17:20 06/01/17 17:20 General appearance: Present: A&O X 3, answers questions appropriately - Head Head exam: Present: atraumatic, normocephalic - Eye Eye exam: Present: PERRL, conjuntiva pink, sclera anicteric Pupils: Present: PERRL - Neck Neck exam general surgery: Present: supple, trachea midline. Absent: lymphadenopathy - Respiratory Respiratory exam: Present: CTAB. Absent: accessory muscle use, rales, rhonchi, wheezes - Cardiovascular Cardiovascular exam: Present: RRR, +S1, +S2. Absent: diastolic murmur, gallop, rubs, systolic murmur - GI/Abdominal GI/Abdominal exam: Present: normal bowel sounds, soft, no peritoneal signs. Absent: distended, tenderness - Extremities Exam Extremities exam: Present: normal capillary refill, warm, radial pulses palpable and symmetrical. Absent: calf tenderness, cyanotic, pedal edema - Neurological Exam Neurological exam: Present: CN II-XII intact, oriented X3, no focal deficits. Absent: pronater drift, facial droop, speech deficit - Skin Skin exam: Present: dry, intact Internal Med - H&P Results - Labs CBC & Chem 7: 06/01/17 09:34 06/01/17 09:34 - Impressions ITS Impressions Ankle X-Ray 06/01/17 13:50 IMPRESSION: Intraprocedural fluoroscopic spot images as above. See separate procedure report for more information. D/ / 06/01/2017 15:32:13 Ryne Xie MD / luz Interpreting Provider: Ryne Xie MD Fluoroscopy 06/01/17 13:50 IMPRESSION: Intraprocedural fluoroscopic spot images as above. See separate procedure report for more information. D/ / 06/01/2017 15:32:13 Ryne Xie MD / luz Interpreting Provider: Ryne Xie MD - Diagnostic Studies Other Images Additional comments: Cervical Spine CT 06/01/17 08:30 IMPRESSION: No acute abnormality of the cervical spine. D/ / 06/01/2017 09:53:08 Malik Calderon MD / nik Interpreting Provider: Malik Calderon MD Head CT 06/01/17 08:30 IMPRESSION: No acute intracranial abnormality. D/ / 06/01/2017 09:49:26 Jacinda Galloway MD / Fernanda Bourgeois Interpreting Provider: Jacinda Galloway MD Foot X-Ray 06/01/17 09:18 IMPRESSION: 1. No acute traumatic injury involving the left foot. D/ / 06/01/2017 10:31:40 Don Julio MD / david Interpreting Provider: Don Julio MD Ankle X-Ray 06/01/17 13:50 IMPRESSION: Intraprocedural fluoroscopic spot images as above. See separate procedure report for more information. D/ / 06/01/2017 15:32:13 Ryne Xie MD / luz Interpreting Provider: Ryne Xie MD Fluoroscopy 06/01/17 13:50 IMPRESSION: Intraprocedural fluoroscopic spot images as above. See separate procedure report for more information. D/ / 06/01/2017 15:32:13 Ryne Xie MD / luz Interpreting Provider: Ryne Xie MD - VTE Documentation of Mechanical Device: Venous foot pump, device <Miguel Grewal P - Last Filed: 06/06/17 14:06> Date of Encounter: 06/06/17 Internal Medicine - H&P: HPI History of present illness: Ms. Jennifer Thao is a 72 year old female All Systems PM: A 10-system review of systems was performed and is negative for pertinent findings except as documented above in the HPI. - Constitutional Vitals: Temp Pulse Resp BP Pulse Ox 98.0 F 100 16 126/60 95 06/01/17 18:09 06/01/17 18:09 06/01/17 18:09 06/01/17 18:09 06/01/17 18:09 Internal Med - H&P Results - Labs CBC & Chem 7: 06/04/17 03:08 06/04/17 03:08 - Impressions ITS Impressions Ankle X-Ray 06/01/17 13:50 IMPRESSION: Intraprocedural fluoroscopic spot images as above. See separate procedure report for more information. D/ / 06/01/2017 15:32:13 Ryne Xie MD / luz Interpreting Provider: Ryne Xie MD Fluoroscopy 06/01/17 13:50 IMPRESSION: Intraprocedural fluoroscopic spot images as above. See separate procedure report for more information. D/ / 06/01/2017 15:32:13 Ryne Xie MD / luz Interpreting Provider: Ryne Xie MD - Attending Attestation I examined this patient and my medical decision-making was reviewed with the Resident Physician/TEACHER LIP READING. I agree with the documented findings, disposition and treatment plan as described except to the extent set forth below.
--- NOTE | 2017-06-01 19:40 | Electrocardiograph Report ---
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
[2017-06-01] MEDS ORDERED: CeFAZolin Syringe 2,000MG/20 ML SYR IVPB SCH (20:00)
[2017-06-01] MEDS: CeFAZolin Premix DUPLEX 2,000 MG/50 ML BAG IVPB SCH (21:47)
[2017-06-02] MEDS: CeFAZolin Premix DUPLEX 2,000 MG/50 ML BAG IVPB SCH ×2 (06:31→15:05)
[2017-06-02 06:50] LABS: Hematocrit 27.3 % (35.3-44.9); Mean Corpuscular HGB Conc 33.7 g/dL (31.6-35.5); Mean Corpuscular Hemoglobin 32.3 pg (28.0-33.3); Mean Corpuscular Volume 95.8 fL (83.0-100.0); Mean Platelet Volume 10.7 fL (9.4-12.4); Platelet Count 169 K/mcL (140-400); Red Blood Count 2.85 M/mcL (3.82-4.97); Red Cell Distribution Width 13.4 % (11.5-14.5); Segmented Neutrophils % 65.2 %
[2017-06-02 06:51] LABS: Basophils % 0.3 %; Eosinophils # 0.1 K/mcL (0.0-0.6); Eosinophils % 0.7 %; Immature Granulocytes % 0.5 % (0-4); Lymphocytes # 2.8 K/mcL (0.6-4.6); Lymphocytes % 21.3 %; Monocytes # 1.6 K/mcL (0.0-1.3); Neutrophils # 8.7 K/mcL (1.6-8.9)
[2017-06-02 06:59] LABS: Hemoglobin 9.2 g/dL (11.5-15.4)
[2017-06-02 07:03] LABS: BUN/Creatinine Ratio 28 (6-26); Carbon Dioxide 25 mEq/L (19-29); Chloride 108 mEq/L (98-109); Creatine Kinase 2308 Units/L (29-168); Glucose 86 mg/dL (70-99); Osmolality,Calculated 294 (280-300); Potassium 3.4 mEq/L (3.5-4.5); Sodium 141 mEq/L (136-145); eGFR For African Americans > 60 (> 60); eGFR For Non-African Americans > 60 (> 60)
[2017-06-02 07:04] LABS: Blood Urea Nitrogen 19 mg/dL (7-20); Calcium 7.9 mg/dL (8.6-10.8)
[2017-06-02] MEDS: hydroCHLOROthiazide 25 MG TABLET PO SCH (08:50)
[2017-06-02] MEDS ORDERED: Ibuprofen 400 MG TABLET PO ONE (09:36)
[2017-06-02 12:38] LABS: Hematocrit 27.6 % (35.3-44.9); Hemoglobin 9.2 g/dL (11.5-15.4)
--- NOTE | 2017-06-02 15:12 | Podiatry Progress Note ---
Date of Encounter: 06/02/17 Time of Encounter: 12:30 - Assessment and Plan (1) Open trimalleolar fracture of left ankle Current Visit: Yes Status: Acute Assessment: Status post ORIF left trimalleolar ankle fracture and ORIF of syndesmosis left ankle by Dr. Alfredo on 06/01/17. Plan: Keep posterior splint dry and intact. Continue ice, rest, and elevation. Strict nonweightbearing to left lower extremity. Physical therapy evaluated patient and recommends an ECF. Patient agreeable to going to rehab. Patient will need to f/u in Podiatry with Chencho Alfredo one week after discharge from the hospital. Qualifiers: Encounter type: initial encounter Open fracture type: open type I or II Qualified Code(s): S82.852B - Displaced trimalleolar fracture of left lower leg , initial encounter for open fracture type I or II Subjective Interval history: Patient is lying in bed with a posterior splint dry and intact to the left lower extremity. Patient is status post ORIF left trimalleolar ankle fracture and ORIF of syndesmosis left ankle by Dr. Alfredo on 06/01/2017. Patient rates pain to left ankle currently at a 3 out of 10. Patient states she is taking Advil for the pain and does not want to take any narcotics. No complaints of fever, chills, chest pain, shortness of breath, or calf pain. Patient states she has concerns in regards to the dose of her phenobarbital. Patient states she takes 64.8 milligrams tablets, 3 of them once daily. Patient states she lives by her self at home. Objective - Vital Signs Vital Signs: Vital Signs Temp Pulse Resp BP Pulse Ox 06/02/17 12:54 98.4 F 92 15 126/58 97 06/02/17 08:19 98.1 F 88 16 98/54 95 06/02/17 04:10 97.8 F 73 16 101/65 99 06/01/17 23:56 98.3 F 80 16 108/63 99 06/01/17 19:08 98.1 F 91 19 103/46 92 06/01/17 18:09 98.0 F 100 16 126/60 95 06/01/17 17:20 97.9 F 97 16 134/64 97 06/01/17 16:49 97.9 F 91 16 130/64 97 06/01/17 16:47 97 06/01/17 16:16 98.0 F 89 16 131/70 94 06/01/17 15:53 97.8 F 84 12 135/70 97 06/01/17 15:43 87 12 139/65 97 06/01/17 15:34 85 12 139/69 99 06/01/17 15:24 98 F 87 14 140/75 99 Intake and Output 06/01/17 06/02/17 06/02/17 23:59 07:59 15:59 Intake Total 540 / 540 800 / 800 50 / 50 Output Total 600 / 600 850 / 850 Balance -60 / -60 -50 / -50 50 / 50 Intake: IV Fluids 50 / 50 50 / 50 Ancef Premix DUPLEX 2,000 mg In 50 / 50 50 / 50 50 ml @ 100 mls/hr IVPB Q8H RAFA Rx#:[id number] Oral 490 / 490 800 / 800 Output: Catheter 600 / 600 850 / 850 Other: Meal Dinner Percent of Meal Consumed 100% - Exam Exam: General appearance: alert awake oriented X 3. Calm and pleasant, no acute distress.. Vascular: No evidence of cyanosis, pallor or rubor, Skin Temperature warm, No calf pain with manual compression. capillary refill time is immediate to digits . Neurologic: Sensation intact with light touch to toes #1 through #5 left foot. Toes are pink, warm and dry. Postop Exam: S/P posterior splint dry and intact to the left lower extremity. - Lab Result Diagrams: 06/02/17 12:31 06/02/17 06:30 Labs: Abnormal lab results WBC 13.3 K/mcL (4.3-11.1) H 06/02/17 06:30 RBC 2.85 M/mcL (3.82-4.97) L 06/02/17 06:30 Hgb 9.2 g/dL (11.5-15.4) L 06/02/17 12:31 Hct 27.6 % (35.3-44.9) L 06/02/17 12:31 Monocytes # 1.6 K/mcL (0.0-1.3) H 06/02/17 06:30 Immature Plt Fraction 6.5 % (1.1-6.1) H 06/01/17 09:34 PT 13.2 Seconds (9.4-12.1) H 06/01/17 09:34 APTT 25.1 Seconds (26.0-36.0) L 06/01/17 09:34 Potassium 3.4 mEq/L (3.5-4.5) L 06/02/17 06:30 BUN/Creatinine Ratio 28 (6-26) H 06/02/17 06:30 Calcium 7.9 mg/dL (8.6-10.8) L D 06/02/17 06:30 AST 159 Units/L (5-34) H 06/01/17 09:34 ALT 61 Units/L (0-55) H 06/01/17 09:34 Creatine Kinase 2308 Units/L (29-168) H 06/02/17 06:30 Urine Clarity Cloudy (Clear) A 06/01/17 09:51 Ur Specific [place] 1.030 (1.010-1.025) H 06/01/17 09:51 Urine Protein 30 mg/dL (Neg-Trace) H 06/01/17 09:51 Urine Ketones 15 mg/dL (Negative) H 06/01/17 09:51 Urine Blood Moderate (Negative) H 06/01/17 09:51 Urine Nitrite Positive (Negative) A 06/01/17 09:51 Urine Microscopic WBC 30-50 per hpf (0-3) H 06/01/17 09:51 Ur Squamous Epith Cells Many per lpf (None-Few) H 06/01/17 09:51 Urine Bacteria Many per hpf (None-Few) H 06/01/17 09:51 Ur Culture Indicated? YES (NO) A 06/01/17 09:51 Valproic Acid < 2.00 mcg/mL (50-100) L 06/01/17 09:34 - VTE Documentation of Mechanical Device: Intermittent pneumatic compression device Consult Discharge Plan - Plan Referrals: Jennyfer Vallejo MD [Primary Care Provider] -
[2017-06-02] MEDS ORDERED: *HR* Enoxaparin 40 MG/0.4 ML SYRINGE SQ STA (16:20)
[2017-06-02] MEDS ORDERED: cefTRIAXone 1,000 MG in Water for inj. (sterile) 10 ML IVP SCH (21:00)
--- NOTE | 2017-06-02 23:12 | Podiatry Progress Note ---
Date of Encounter: 06/02/17 Time of Encounter: 04:00 - Assessment and Plan (1) Trimalleolar fracture of ankle, closed Current Visit: Yes Status: Acute discussed surgical procedure and course of recovery with patient. c/w non-wb left lower extremity using walker. physical therapy consult appreciated. pain adequately controlled. lovenox for DVT ppx. Qualifiers: Encounter type: initial encounter Laterality: left Qualified Code(s): S82.852A - Displaced trimalleolar fracture of left lower leg, initial encounter for closed fracture Subjective Interval history: 1 day s/p left trimalleolar ankle ORIF. Says her pain is under control. Denies f /c/n/v/sob/cp/calf pain. No falls or accidents. Objective - Vital Signs Vital Signs: Vital Signs Temp Pulse Resp BP Pulse Ox 06/02/17 15:20 97 06/02/17 12:54 98.4 F 92 15 126/58 97 06/02/17 08:19 98.1 F 88 16 98/54 95 06/02/17 04:10 97.8 F 73 16 101/65 99 06/01/17 23:56 98.3 F 80 16 108/63 99 Intake and Output 06/02/17 06/02/17 06/02/17 07:59 15:59 23:59 Intake Total 800 / 800 50 / 50 120 / 120 Output Total 850 / 850 Balance -50 / -50 50 / 50 120 / 120 Intake: IV Fluids 50 / 50 Ancef Premix DUPLEX 2,000 mg In 50 / 50 50 ml @ 100 mls/hr IVPB Q8H [facility] Rx#:[id number] Oral 800 / 800 120 / 120 Output: Catheter 850 / 850 Other: # Voids 1 - Exam Exam: Well developed and nourished female in no acute distress Vasc: CFT < 3 sec x 5 digits left foot. Derm: psoterior splint clean, dry, and intact. Musc: no calf pain with squeeze b/l. Neuro: sensation intact to light touch. - Lab Result Diagrams: 06/02/17 12:31 06/02/17 06:30 Labs: Abnormal lab results WBC 13.3 K/mcL (4.3-11.1) H 06/02/17 06:30 RBC 2.85 M/mcL (3.82-4.97) L 06/02/17 06:30 Hgb 9.2 g/dL (11.5-15.4) L 06/02/17 12:31 Hct 27.6 % (35.3-44.9) L 06/02/17 12:31 Monocytes # 1.6 K/mcL (0.0-1.3) H 06/02/17 06:30 Immature Plt Fraction 6.5 % (1.1-6.1) H 06/01/17 09:34 PT 13.2 Seconds (9.4-12.1) H 06/01/17 09:34 APTT 25.1 Seconds (26.0-36.0) L 06/01/17 09:34 Potassium 3.4 mEq/L (3.5-4.5) L 06/02/17 06:30 BUN/Creatinine Ratio 28 (6-26) H 06/02/17 06:30 Calcium 7.9 mg/dL (8.6-10.8) L D 06/02/17 06:30 AST 159 Units/L (5-34) H 06/01/17 09:34 ALT 61 Units/L (0-55) H 06/01/17 09:34 Creatine Kinase 2308 Units/L (29-168) H 06/02/17 06:30 Urine Clarity Cloudy (Clear) A 06/01/17 09:51 Ur Specific [place] 1.030 (1.010-1.025) H 06/01/17 09:51 Urine Protein 30 mg/dL (Neg-Trace) H 06/01/17 09:51 Urine Ketones 15 mg/dL (Negative) H 06/01/17 09:51 Urine Blood Moderate (Negative) H 06/01/17 09:51 Urine Nitrite Positive (Negative) A 06/01/17 09:51 Urine Microscopic WBC 30-50 per hpf (0-3) H 06/01/17 09:51 Ur Squamous Epith Cells Many per lpf (None-Few) H 06/01/17 09:51 Urine Bacteria Many per hpf (None-Few) H 06/01/17 09:51 Ur Culture Indicated? YES (NO) A 06/01/17 09:51 Valproic Acid < 2.00 mcg/mL (50-100) L 06/01/17 09:34 - VTE Documentation of Mechanical Device: Intermittent pneumatic compression device Consult Discharge Plan - Plan Referrals: Jennyfer Vallejo MD [Primary Care Provider] -
[2017-06-03 05:50] LABS: Basophils % 0.4 %; Eosinophils # 0.4 K/mcL (0.0-0.6); Hematocrit 26.4 % (35.3-44.9); Hemoglobin 8.6 g/dL (11.5-15.4); Immature Granulocytes % 0.2 % (0-4); Lymphocytes # 2.3 K/mcL (0.6-4.6); Lymphocytes % 26.2 %; Mean Corpuscular HGB Conc 32.6 g/dL (31.6-35.5); Mean Corpuscular Hemoglobin 31.4 pg (28.0-33.3); Mean Corpuscular Volume 96.4 fL (83.0-100.0); Mean Platelet Volume 10.9 fL (9.4-12.4); Monocytes # 1.1 K/mcL (0.0-1.3); Monocytes % 11.9 %; Neutrophils # 5.1 K/mcL (1.6-8.9); Platelet Count 178 K/mcL (140-400); Red Blood Count 2.74 M/mcL (3.82-4.97); Red Cell Distribution Width 13.9 % (11.5-14.5); Segmented Neutrophils % 57.3 %
[2017-06-03 06:10] LABS: BUN/Creatinine Ratio 29 (6-26); Blood Urea Nitrogen 18 mg/dL (7-20); Calcium 7.8 mg/dL (8.6-10.8); Carbon Dioxide 26 mEq/L (19-29); Chloride 111 mEq/L (98-109); Glucose 119 mg/dL (70-99); Osmolality,Calculated 299 (280-300); Potassium 3.5 mEq/L (3.5-4.5); Sodium 143 mEq/L (136-145); eGFR For African Americans > 60 (> 60); eGFR For Non-African Americans > 60 (> 60)
[2017-06-03] MEDS ORDERED: amLODIPine 5 MG TABLET PO SCH ×2 (09:00→21:00)
[2017-06-03] MEDS: hydroCHLOROthiazide 25 MG TABLET PO SCH (09:17)
[2017-06-03] MEDS: cefTRIAXone 1,000 MG in Water for inj. (sterile) 10 ML IVP SCH (09:17)
--- NOTE | 2017-06-03 09:21 | Internal Med Progress Note ---
Date of Encounter: 06/02/17 Time of Encounter: 09:19 - Assessment and plan (1) Open trimalleolar fracture of left ankle Current Visit: Yes Status: Acute Assessment and plan: Management per ortho. She is overall doing well. Qualifiers: Encounter type: initial encounter Open fracture type: open type I or II Qualified Code(s): S82.852B - Displaced trimalleolar fracture of left lower leg , initial encounter for open fracture type I or II (2) Rhabdomyolysis Current Visit: Yes Status: Acute Assessment and plan: Improved w IVF. Will recheck CK check for down trend. Qualifiers: Rhabdomyolysis type: traumatic Encounter type: initial encounter Qualified Code(s): T79.6XXA - Traumatic ischemia of muscle, initial encounter (3) Seizure disorder Current Visit: Yes Status: Acute Assessment and plan: Continue home medications. (4) DVT prophylaxis Current Visit: Yes Status: Acute (5) Hypertension Current Visit: Yes Status: Acute Assessment and plan: HCTZ, Norvasc. Hold Norvasc if BP is low. Qualifiers: Hypertension type: essential hypertension Qualified Code(s): I10 - Essential (primary) hypertension - Subjective Interval history: No acute events. Patient wondering why phenobarbitol being held. Discussed BP low. - Constitutional Vitals: Temp Pulse Resp BP Pulse Ox 99.1 F 88 15 129/63 93 06/03/17 09:18 06/03/17 09:18 06/03/17 09:18 06/03/17 09:18 06/03/17 09:18 General appearance: Present: A&O X 3, answers questions appropriately Exam: - Head Head exam: Present: atraumatic, normocephalic - Eye Eye exam: Present: PERRL, conjuntiva pink, sclera anicteric Pupils: Present: PERRL - Neck Neck exam general surgery: Present: supple, trachea midline. Absent: lymphadenopathy - Respiratory Respiratory exam: Present: CTAB. Absent: accessory muscle use, rales, rhonchi, wheezes - Cardiovascular Cardiovascular exam: Present: RRR, +S1, +S2. Absent: diastolic murmur, gallop, rubs, systolic murmur - GI/Abdominal GI/Abdominal exam: Present: normal bowel sounds, soft, no peritoneal signs. Absent: distended, tenderness - Extremities Exam Extremities exam: Present: normal capillary refill, warm, radial pulses palpable and symmetrical. Absent: calf tenderness, cyanotic, pedal edema - Neurological Exam Neurological exam: Present: CN II-XII intact, oriented X3, no focal deficits. Absent: pronater drift, facial droop, speech deficit - Skin Skin exam: Present: dry, intact Internal Medicine: Result - Labs CBC & Chem 7: 06/03/17 05:18 06/03/17 05:18 Labs: Short CBC 06/02/17 06/03/17 Range/Units 12:31 05:18 WBC 8.9 (4.3-11.1) K/mcL Hgb 9.2 L 8.6 L (11.5-15.4) g/dL Hct 27.6 L 26.4 L (35.3-44.9) % Plt Count 178 (140-400) K/mcL Neutrophils # 5.1 (1.6-8.9) K/mcL BMP 06/03/17 05:18 Sodium 143 Potassium 3.5 Chloride 111 H Carbon Dioxide 26 BUN 18 Creatinine 0.63 Glucose 119 H Calcium 7.8 L - ABG Interpretation ABG results: PT/INR, D-dimer PT 13.2 Seconds (9.4-12.1) H 06/01/17 09:34 - VTE Documentation of Mechanical Device: Intermittent pneumatic compression device Consult Discharge Plan - Plan Referrals: Jennyfer Vallejo MD [Primary Care Provider] -
[2017-06-03 13:05] LABS: Hematocrit 28.7 % (35.3-44.9); Hemoglobin 9.5 g/dL (11.5-15.4)
[2017-06-03] MEDS ORDERED: hydroCHLOROthiazide 25 MG TABLET PO SCH (21:00)
[2017-06-04 03:26] LABS: Basophils % 0.3 %; Eosinophils # 0.5 K/mcL (0.0-0.6); Eosinophils % 4.8 %; Hematocrit 27.2 % (35.3-44.9); Hemoglobin 8.9 g/dL (11.5-15.4); Immature Granulocytes % 0.4 % (0-4); Lymphocytes # 2.4 K/mcL (0.6-4.6); Lymphocytes % 25.9 %; Mean Corpuscular HGB Conc 32.7 g/dL (31.6-35.5); Mean Corpuscular Hemoglobin 31.9 pg (28.0-33.3); Mean Corpuscular Volume 97.5 fL (83.0-100.0); Mean Platelet Volume 10.3 fL (9.4-12.4); Monocytes % 10.4 %; Neutrophils # 5.5 K/mcL (1.6-8.9); Platelet Count 196 K/mcL (140-400); Red Blood Count 2.79 M/mcL (3.82-4.97); Segmented Neutrophils % 58.2 %
[2017-06-04 03:39] LABS: BUN/Creatinine Ratio 28 (6-26); Blood Urea Nitrogen 18 mg/dL (7-20); Calcium 8.3 mg/dL (8.6-10.8); Carbon Dioxide 25 mEq/L (19-29); Chloride 107 mEq/L (98-109); Glucose 126 mg/dL (70-99); Osmolality,Calculated 295 (280-300); Potassium 3.6 mEq/L (3.5-4.5); Sodium 141 mEq/L (136-145); eGFR For African Americans > 60 (> 60); eGFR For Non-African Americans > 60 (> 60)
[2017-06-04] MEDS: cefTRIAXone 1,000 MG in Water for inj. (sterile) 10 ML IVP SCH (08:23)
--- NOTE | 2017-06-04 09:18 | Internal Med Progress Note ---
Date of Encounter: 06/03/17 Time of Encounter: 12:23 - Assessment and plan (1) Open trimalleolar fracture of left ankle Current Visit: Yes Status: Acute Assessment and plan: Patient doing well postoperative Qualifiers: Encounter type: initial encounter Open fracture type: open type I or II Qualified Code(s): S82.852B - Displaced trimalleolar fracture of left lower leg , initial encounter for open fracture type I or II (2) Rhabdomyolysis Current Visit: Yes Status: Acute Assessment and plan: Resolving with IV fluids Qualifiers: Rhabdomyolysis type: traumatic Encounter type: initial encounter Qualified Code(s): T79.6XXA - Traumatic ischemia of muscle, initial encounter (3) Seizure disorder Current Visit: Yes Status: Acute Assessment and plan: Continue home seizure medications (4) DVT prophylaxis Current Visit: Yes Status: Acute (5) Hypertension Current Visit: Yes Status: Acute Assessment and plan: HCTZ, Norvasc. Hold Norvasc if BP is low. Qualifiers: Hypertension type: essential hypertension Qualified Code(s): I10 - Essential (primary) hypertension - Subjective Interval history: No acute events. No complaints - Constitutional Vitals: Temp Pulse Resp BP Pulse Ox 98.2 F 86 16 138/67 96 06/04/17 07:02 06/04/17 07:02 06/04/17 07:02 06/04/17 07:02 06/04/17 07:02 General appearance: Present: A&O X 3, answers questions appropriately Exam: GEN: No acute distress CVS: Regular rate and rhythm, no murmurs rubs gallops Lungs: Clear to auscultation bilaterally Abdomen: Soft nontender nondistended Extremities: Left foot is boot, there is edema just above boot, fairly unchanged since yesterday. No erythema Internal Medicine: Result - Labs CBC & Chem 7: 06/04/17 03:08 06/04/17 03:08 Labs: Short CBC 06/03/17 06/04/17 Range/Units 12:54 03:08 WBC 9.4 (4.3-11.1) K/mcL Hgb 9.5 L 8.9 L (11.5-15.4) g/dL Hct 28.7 L 27.2 L (35.3-44.9) % Plt Count 196 (140-400) K/mcL Neutrophils # 5.5 (1.6-8.9) K/mcL BMP 06/04/17 03:08 Sodium 141 Potassium 3.6 Chloride 107 Carbon Dioxide 25 BUN 18 Creatinine 0.65 Glucose 126 H Calcium 8.3 L - ABG Interpretation ABG results: PT/INR, D-dimer PT 13.2 Seconds (9.4-12.1) H 06/01/17 09:34 - VTE Documentation of Mechanical Device: Intermittent pneumatic compression device Consult Discharge Plan - Plan Referrals: Jennyfer Vallejo MD [Primary Care Provider] -
[2017-06-04] MEDS ORDERED: 0.9 % Sodium Chloride 1,000 ML IVC SCH (09:45)
[2017-06-04] MEDS ORDERED: *HR* Enoxaparin 40 MG/0.4 ML SYRINGE SQ SCH (10:30)
--- NOTE | 2017-06-04 10:56 | Podiatry Progress Note ---
Date of Encounter: 06/04/17 Time of Encounter: 09:05 - Assessment and Plan (1) Trimalleolar fracture of ankle, closed Current Visit: Yes Status: Acute She is doing well s/p left ankle ORIF. c/w non-wb left lower extremity using walker. leave bandage and posterior splint clean, dry, and intact. Do not remove. Do not change bandage. cryocuff 20 minutes per hour as needed. elevation. dvt ppx with lovenox for 3 weeks. she is stable for discharge to [facility] from the standpoint of her left ankle. f/u 1 week after discharge. Qualifiers: Encounter type: initial encounter Laterality: left Qualified Code(s): S82.852A - Displaced trimalleolar fracture of left lower leg, initial encounter for closed fracture Subjective Interval history: 3 days s/p left trimalleolar ankle ORIF. She is sitting up in a chair. Says she has been staying off the left ankle. She is not having any pain. Denies f/c/n/v /sob/cp/calf pain. No falls or accidents. Patient says her leg and knee feel much better and she is able to bend her knee which is something she could not do previously. Objective - Vital Signs Vital Signs: Vital Signs Temp Pulse Resp BP Pulse Ox 06/04/17 07:02 98.2 F 86 16 138/67 96 06/04/17 03:52 98.2 F 97 15 137/91 96 06/03/17 23:11 98.6 F 86 16 116/75 96 06/03/17 20:07 98 F 105 16 112/70 95 Intake and Output 06/03/17 06/04/17 06/04/17 23:59 07:59 15:59 Intake Total 150 / 150 50 / 50 480 / 480 Output Total 400 / 400 Balance 150 / 150 -350 / -350 480 / 480 Intake: Oral 150 / 150 50 / 50 480 / 480 Output: Urine 400 / 400 Other: Meal Breakfast Percent of Meal Consumed 100% # Voids 1 - Exam Exam: well developed and nourished female in no acute distress CFT < 3 sec x 5 digits left foot. can flex and extend digits of the left foot. no calf pain with squeeze b/l. left foot posterior splint and bandage clean, dry , and intact. sensation intact to light touch of digits. - Lab Result Diagrams: 06/04/17 03:08 06/04/17 03:08 Labs: Abnormal lab results RBC 2.79 M/mcL (3.82-4.97) L 06/04/17 03:08 Hgb 8.9 g/dL (11.5-15.4) L 06/04/17 03:08 Hct 27.2 % (35.3-44.9) L 06/04/17 03:08 Immature Plt Fraction 6.5 % (1.1-6.1) H 06/01/17 09:34 PT 13.2 Seconds (9.4-12.1) H 06/01/17 09:34 APTT 25.1 Seconds (26.0-36.0) L 06/01/17 09:34 BUN/Creatinine Ratio 28 (6-26) H 06/04/17 03:08 Glucose 126 mg/dL (70-99) H 06/04/17 03:08 Calcium 8.3 mg/dL (8.6-10.8) L 06/04/17 03:08 AST 159 Units/L (5-34) H 06/01/17 09:34 ALT 61 Units/L (0-55) H 06/01/17 09:34 Creatine Kinase 1567 Units/L (29-168) H 06/03/17 12:54 Urine Clarity Cloudy (Clear) A 06/01/17 09:51 Ur Specific [place] 1.030 (1.010-1.025) H 06/01/17 09:51 Urine Protein 30 mg/dL (Neg-Trace) H 06/01/17 09:51 Urine Ketones 15 mg/dL (Negative) H 06/01/17 09:51 Urine Blood Moderate (Negative) H 06/01/17 09:51 Urine Nitrite Positive (Negative) A 06/01/17 09:51 Urine Microscopic WBC 30-50 per hpf (0-3) H 06/01/17 09:51 Ur Squamous Epith Cells Many per lpf (None-Few) H 06/01/17 09:51 Urine Bacteria Many per hpf (None-Few) H 06/01/17 09:51 Ur Culture Indicated? YES (NO) A 06/01/17 09:51 Valproic Acid < 2.00 mcg/mL (50-100) L 06/01/17 09:34 - VTE Documentation of Mechanical Device: Intermittent pneumatic compression device Consult Discharge Plan - Plan Referrals: Jennyfer Vallejo MD [Primary Care Provider] -
[2017-06-04 12:01] VITALS: BP 125/70
--- NOTE | 2017-06-04 12:32 | Discharge Summary ---
Date of Encounter: 06/04/17 Time of Encounter: 12:28 - Discharge Diagnosis (1) Open trimalleolar fracture of left ankle Priority: Primary Status: Acute Qualifiers: Encounter type: initial encounter Open fracture type: open type I or II Qualified Code(s): S82.852B - Displaced trimalleolar fracture of left lower leg , initial encounter for open fracture type I or II (2) Rhabdomyolysis Priority: Secondary Status: Resolved Qualifiers: Rhabdomyolysis type: traumatic Encounter type: initial encounter Qualified Code(s): T79.6XXA - Traumatic ischemia of muscle, initial encounter (3) UTI (urinary tract infection) Priority: Secondary Status: Acute Qualifiers: Urinary tract infection type: site unspecified Hematuria presence: without hematuria Qualified Code(s): N39.0 - Urinary tract infection, site not specified (4) Seizure disorder Priority: Secondary Status: Acute (5) DVT prophylaxis Priority: Secondary Status: Acute (6) Hypertension Priority: Secondary Status: Chronic Qualifiers: Hypertension type: essential hypertension Qualified Code(s): I10 - Essential (primary) hypertension - Discharge Medications Prescriptions: OxyCODONE/APAP 5/325 [Percocet 5/325 MG] 1 each PO Q8HR PRN #10 tablet PRN Reason: Severe Pain Home Medications: Amlodipine Besylate 10 mg PO DAILY 06/01/17 [History] Calcium Carbonate [Calcium] 600 mg PO DAILY 06/01/17 [History] Cholecalciferol (D-3) [Vitamin D] 2,000 unit PO DAILY 06/01/17 [History] Hydrochlorothiazide [Microzide] 12.5 mg PO DAILY 06/01/17 [History] PHENobarbital [Phenobarbital] 64.8 mg PO TID 06/01/17 [History] Phenytoin ER [Dilantin ER] 100 mg PO TID 06/01/17 [History] OxyCODONE/APAP 5/325 [Percocet 5/325 MG] 1 each PO Q8HR PRN #10 tablet 06/04/17 [Rx] Allergies/Adverse Reactions: 3 Allergy/AdvReac Type Severity Reaction Status Date / Time No Known Allergies Allergy Verified 06/01/17 09:08 Date of admission: 06/01/17 11:28 Primary care physician: Jennyfer Vallejo, Consults: 06/01/17 15:25 Consult to Physical Therapy [CONS] Routine Comment: Evaluate, develop and implement POC Reason for Consult: s/p left ankle ORIF non-weight bearing left lower extremity 06/01/17 16:38 Consult to [facility] [facility] [CONS] Routine Reason for SW Consult: lives at home alone Discharging clinician: Arturo Paulino - Patient Status Disposition: Transfer SNF Condition: Fair Functional capacity at discharge: uses cane/walker Overall status at discharge: patient is progressing back to baseline - Discharge Instructions Follow Up With: Jennyfer Vallejo MD [Primary Care Provider] - - Diet and Activity Activity: as per physical therapy Diet: advance to your usual diet Hospital course: Ms. Jennifer Thao is a 72 year old female with past medical history of seizure disorder. According to the patient a few days ago prior to admission she tripped over a power cord and had a left ankle injury and was not able to get up. There she was able to reach a phone and call for assistance. An x-ray of her left ankle showed a closed trimalleolar fracture, a urinalysis showed findings consistent with UTI as well as rhabdomyolysis [place] [address]20. CT of the head and C-spine were negative for any intracranial abnormalities or fractures. She was given IV fluid hydration, urine cultures were sent and she was started on Rocephin. She was taken to surgery from the ER for an ORIF on . Surgery and postoperative bleeding she did well. She was admitted to orthopedic floor. He was treated with morphine and Percocet for pain postoperatively. Physical therapy evaluated patient and recommended ECF, and she was agreeable to going to rehabilitation. Patient's CK levels improved with IV fluid, and she was hemodynamically stable. She was [facility] at [facility] and stable condition. - Time Spent with Patient Total time spent providing and/or coordinating discharge services: - Constitutional Vitals: Temp Pulse Resp BP Pulse Ox 97.6 F 84 14 125/70 96 06/04/17 11:54 06/04/17 11:54 06/04/17 11:54 06/04/17 11:54 06/04/17 11:54 General appearance: Present: A&O X 3, answers questions appropriately Exam: GEN: No acute distress CVS: Regular rate and rhythm, no murmurs rubs gallops Lungs: Clear to auscultation bilaterally Abdomen: Soft nontender nondistended Extremities: Left foot is boot, there is edema just above boot, fairly unchanged since yesterday. No erythema - VTE Documentation of Mechanical Device: Intermittent pneumatic compression device
--- NOTE | 2017-06-04 12:43 | Physician Discharge Referral ---
ExtendedCare Referral Info Transfer To: [facility] - Diagnosis (1) Open trimalleolar fracture of left ankle Priority: Primary Status: Acute (2) Rhabdomyolysis Priority: Secondary Status: Resolved (3) UTI (urinary tract infection) Priority: Secondary Status: Acute (4) Seizure disorder Priority: Secondary Status: Acute (5) DVT prophylaxis Priority: Secondary Status: Acute (6) Hypertension Priority: Secondary Status: Chronic - Transfer Medications Prescriptions: OxyCODONE/APAP 5/325 [Percocet 5/325 MG] 1 each PO Q8HR PRN #10 tablet PRN Reason: Severe Pain Home Medications: Amlodipine Besylate 10 mg PO DAILY 06/01/17 [History] Calcium Carbonate [Calcium] 600 mg PO DAILY 06/01/17 [History] Cholecalciferol (D-3) [Vitamin D] 2,000 unit PO DAILY 06/01/17 [History] Hydrochlorothiazide [Microzide] 12.5 mg PO DAILY 06/01/17 [History] PHENobarbital [Phenobarbital] 64.8 mg PO TID 06/01/17 [History] Phenytoin ER [Dilantin ER] 100 mg PO TID 06/01/17 [History] OxyCODONE/APAP 5/325 [Percocet 5/325 MG] 1 each PO Q8HR PRN #10 tablet 06/04/17 [Rx] Allergies/Adverse Reactions: 3 Allergy/AdvReac Type Severity Reaction Status Date / Time No Known Allergies Allergy Verified 06/01/17 09:08 - Respiratory Orders Smoking Cessation: Smoking cessation has been advised. For more information, call the [place] Tobacco Quit Line at 5-907-CZED-NOW. - Mobility Orders Other (As directed by physical therapy) - Rehabiliation Orders Rehab Potential: Fair Rehab Orders: Evaluation for Physical Therapy, Evaluation for Occupational Therapy - Treatments Skin tear care topically daily PRN per policy - Diet Orders No Added Salt (ALVA) CERTIFICATION: I certify that the transfer of the above named patient to an Extended Care Facility is necessary for the continuing treatment of the diagnosis listed. The above information is true and accurate reflection of patient's current condition. Confidential - Redisclosure prohibited without a patient's written consent.
== END 2017-06-04 16:40 | DRG 493 ==
LOC: EMEROO 08:23 → 3NENU 11:28
PROVIDERS: ADMIT Internal Medicine; ATTEND Student in an Organized Health Care Education/Training Program